=== PATIENT | male | born 1970 | race African-American/Black ===

== ENCOUNTER → 2022-02-25 | Outpatient (CLI) | payer OTHER ==
[~2022-02-25] MED LIST: REGADENOSON 0.4 MG/5 ML DISP.SYRIN. IV ONE
--- NOTE | 2022-02-26 13:43 | RAD ---
MR#: [id number] Date of Study: 02/25/2022 Ordering Physician: SAMIRA GOMEZ, Referring Physician: SHANNON PITT Tech: MICHELINE Hurley ARRT (R) (N) APPROVED REPORT Test Type: Pharmacological Stress Nurse/Tech: Ale Beauchamp R.N. Test Indications: chest pain Cardiac History: htn Medications: See Electronic Medical Record Medical History: See Electronic Medical Record Resting ECG: SR Resting Heart Rate: 82 bpm Resting Blood Pressure: 138/84mmHg Pretest Chest Pain: No chest pain Nurse/Tech Notes S1S2, lungs CTA Consent: The procedure was explained to the patient in lay terms. Informed consent was witnessed. Emrvin eout was entered into [employer]. History and Stress Test performed by MALKA Wilson Pharm. Details Pharmacologic stress testing was performed using 0.4mg per 5ml of regadenoson given intravenously ove r 7-10 seconds. Stress Symptoms SOA, stomach cramps POST EXERCISE Reason for Termination: Infusion complete Max HR: 122 bpm Max Blood Pressure: 156/89mmHg Blood Pressure response to exercise: Normal blood pressure response during stress. Heart Rate response to exercise: wnl Chest Pain: No. Arrhythmia: No. ST Change: No. INTERPRETATION Stress EKG Conclusion: No evidence of stress induced EKG changes. Imaging Protocol IMAGE PROTOCOL: Rest Tc-99m/stress Tc-99m 1 day Rest: Stress: Viability: Radiopharm.Tc99m NqyhgubtlCa67n Sestamibi Aufz24lIf 32.7mCi Img Date 02/25/2022 02/25/2022 Inj-Img Edtp22umx. 60min. Rest Admin Site:IV - Left AntecubitalAdministrator:MICHELINE Hurley ARRT (Milla)(N) Stress Admin Site: IV - Left AntecubitalAdministrator: MALKA Wilson STRESS DATA End Diast. Vol.107.0mlAv. Heart Rate90.0bpm End Syst. Vol.31.0mlCO Index BSA6.9L/min Myocardial Qbhd219.0gEject. Dipchzlg94.0% Stress Rates Pk. Fill Rate4.03EDV/secLVtime Pk. Fill 199.23msec Pk. Empty Rate5.21ESV/secLVtime Pk. Eject92.53msec 12/03 Pk. Fill1.65EDV/sec Stress Scores Regional WT0.00Summed WT11.00 Regional WM0.00Summed WM0.00 The rest and stress images show normal perfusion, normal contraction and thickening. LV Perf. Quant 17 Seg. SSS0.00 17 Seg. SRS1.00 17 Seg. SDS0.00 Stress Defect Extent (% LAD)0.00Rest Defect Extent (% LAD)0.00Rev. Defect Extent (% LAD)0.00 Stress Defect Extent (% LCX) 0.00Rest Defect Extent (% LCX)16.30Rev. Defect Extent (% LCX)0.00 Stress Defect Extent (% RCA)0.00Rest Defect Extent (% RCA)0.00Rev. Defect Extent (% RCA)0.00 Stress Defect Extent (% YAW)0.00Rest Defect Extent (% YAW)3.00Rev. Defect Extent (% YAW)0.00 Other Information Quality:Average Risk Assessment: Low Risk Conclusion 1. No evidence of EKG changes with stress testing. 2. Normal perfusion at stress/rest. 3. Low risk study. 4. EF > 60%. Signed by : Marcus Evans, Electronically Approved : 02/26/2022 13:43:01
== END ==
LOC: NM 08:56
PROVIDERS: ATTEND Internal Medicine Cardiovascular Disease
DX: R07.9 Chest pain, unspecified (principal)
CPT/HCPCS: 78452; 93017; A9500; J2785

== ENCOUNTER → 2022-02-27 | Outpatient (CLI) | payer OTHER ==
--- NOTE | 2022-02-27 14:55 | CARD ---
MR#: [id number] Date of Study: 02/27/2022 Ordering Physician: SAMIRA GOMEZ, Referring Physician: SAMIRA GOMEZ Tech: Emily Adam [facility] APPROVED REPORT EXAM: Two-dimensional and M-mode echocardiogram with Doppler and color Doppler. Other Information Quality : AverageHR: 91bpm Rhythm : NSR INDICATION Hypertension/HCVD RISK FACTORS Hypertension Obesity 2D DIMENSIONS RVDd4.1 (2.9-3.5cm)Left Atrium(2D)4.1 (1.6-4.0cm) IVSd1.2 (0.7-1.1cm)Aortic Root(2D)3.5 (2.0-3.7cm) LVDd4.9 (3.9-5.9cm)LVOT Diameter2.2 (1.8-2.4cm) PWd1.1 (0.7-1.1cm)LVDs2.9 (2.5-4.0cm) FS (%) 40.7 %SV80.0 ml LVEF(%)71.4 (>50%) Aortic Valve AoV Peak Jairo.164.6cm/sAoV VTI26.4cm AO Peak GR.10.8mmHgLVOT Peak Jairo.102.7cm/s AO Mean GR.5mmHgAVA (VMAX)2.31cm2 Mitral Valve MV E Udcqczrp57.6cm/sMV DECEL SWMO666lv MV A Bhmxrtgi96.6cm/sE/A Ratio1.0 Pulmonary Valve PV Peak Mfxguncd832.7cm/s Tricuspid Valve TR P. Bolwztov068we/sTR Peak Gr.16mmHg LEFT VENTRICLE The left ventricle is normal size. There is borderline to mild concentric left ventricular hypertroph y. The left ventricular systolic function is normal and the ejection fraction is within normal range. Estimated ejection fraction 55-60%. There is normal LV segmental wall motion. Transmitral Doppler fl ow pattern is Grade I-abnormal relaxation pattern. RIGHT VENTRICLE The right ventricle is normal size. There is normal right ventricular wall thickness. The right ventr icular systolic function is normal. ATRIA The left atrium size is normal. The right atrium size is normal. The interatrial septum is intact wit h no evidence for an atrial septal defect or patent foramen ovale as noted on 2-D or Doppler imaging. AORTIC VALVE The aortic valve is normal in structure and function. Doppler and Color Flow revealed no significant aortic regurgitation. There is no significant aortic valvular stenosis. MITRAL VALVE The mitral valve is normal in structure and function. There is no evidence of mitral valve prolapse. There is no mitral valve stenosis. Doppler and Color Flow revealed no mitral valve regurgitation note d. TRICUSPID VALVE The tricuspid valve is normal in structure and function. Doppler and Color Flow revealed no tricuspid valve regurgitation noted. There is no tricuspid valve stenosis. PULMONIC VALVE Doppler and Color Flow revealed no pulmonic valvular regurgitation. There is no pulmonic valvular chris nosis. GREAT VESSELS The aortic root is normal in size. The ascending aorta is normal in size. The IVC is normal in size a nd collapses >50% with inspiration. PERICARDIAL EFFUSION There is no evidence of significant pericardial effusion. Critical Notification Critical Value: No <Conclusion> The left ventricular systolic function is normal and the ejection fraction is within normal range. E stimated ejection fraction 55-60%. There is normal LV segmental wall motion. Signed by : Marcus Evans, Electronically Approved : 02/27/2022 14:54:59
== END ==
LOC: ECHO 09:01
PROVIDERS: ATTEND Internal Medicine Cardiovascular Disease
DX: I51.7 Cardiomegaly (principal); I10 Essential (primary) hypertension
CPT/HCPCS: 93306; C8929